=== PATIENT | male | born 2000 | race Caucasian/White ===

== ENCOUNTER 2021-08-20 21:18 | Emergency (ER) | payer SELFPAY ==
--- NOTE | ~2021-08-20 | XR_ITS ---
EXAMINATION: XR elbow RT min 3V, XR forearm RT 2V DATE: 08/20/2021 22:02 INDICATION: Right elbow and forearm pain 5 days post fall TECHNIQUE: 1. Anteroposterior, two oblique and lateral views of the right elbow were obtained. 2. AP and lateral views of the right forearm were obtained. COMPARISON: None. FINDINGS: Alignment is normal. Subtle angulation of the cortex at the proximal right radial head neck junction consistent with nondisplaced fracture. No other fractures identified. Joint spaces are normal. Small bone island at the capitellum. Small right elbow joint effusion with displacement of the anterior but not the posterior fat pad. Soft tissues are unremarkable. IMPRESSION: 1. Nondisplaced fracture at the right radial neck. Reviewed, dictated and finalized at location A. IOTHERAPY AIDE IMPRESSION: 1. Nondisplaced fracture at the right radial neck.
[2021-08-20 21:21] VITALS: BP 153/82; PULSE 120; RESP 16; TEMP 36.3; O2SAT 100
[2021-08-20] MEDS: HYDROcodone/acetaminophen (*CRX) 5-325 MG TABLET 1 TAB PO (22:01)
--- NOTE | 2021-08-20 22:04 | ED.GENADULT ---
HPI - General Adult General Chief complaint: Extremity Injury, Upper Stated complaint: arm pain Time Seen by Provider: 08/20/21 21:43 Source: RN notes reviewed History of Present Illness HPI narrative: Patient presents emergency department from home for right arm pain. Patient states he fell on , August 16 he states he is approximately 3 feet up off the ground when he fell landing onto his right forearm he states that he works as a correctional security officer and did not work the next day or the weekend he states he moved back to work today and after using the arm the pain became severe again today pain is located in the right elbow and into the right forearm over the ulnar aspect he denies any other trauma or injury denies any numbness or tingling of the extremity states he took Aleve approximately 2 hours ago the pain Related Data Allergies Allergy/AdvReac Type Severity Reaction Status Date / Time No Known Allergies Allergy Verified 08/20/21 21:24 Review of Systems Review of Systems: Gen.: Denies fevers or chills Musculoskeletal: See HPI Neuro: Denies numbness, tingling, weakness Skin: Denies rash Endo: Denies DM PMFSH Past Medical History Medical History (Updated 08/20/21 @ 23:02 by Juan Pablo Grayson DO) Patient denies significant medical history Social History Social History (Updated 08/20/21 @ 22:05 by Juan Pablo Grayson DO) Smoking status: Never smoker Exam Narrative: APPEARANCE: No acute distress, nontoxic, resting in bed Eyes: EOMI HEENT: Normocephalic, atraumatic, RESPIRATORY: No respiratory distress MUSCULOSKELETAl: Tender palpation over the right olecranon process and medial condyle of the elbow no swelling or ecchymosis tenderness along the ulnar aspect of the forearm no swelling or ecchymosis full flexion-extension of the elbow with pain with full flexion no tenderness of the wrist or shoulder radial pulse 2+ neurovascular intact NEURO: Awake and alert. Following commands, speech normal, no focal deficits SKIN:: Warm, dry. Normal Color no rash or lesions Course Course Emergency Course: Discussed with patient results of workup and diagnosis. Discussed need for follow-up with primary care, proper use of medication, and reasons to return to the emergency department. Patient understands and agrees to current treatment plan Vital Signs Vital signs: Vital Signs Temperature 97.4 F L 08/20/21 21:21 Pulse Rate 120 H 08/20/21 21:21 Respiratory Rate 16 08/20/21 21:21 Blood Pressure 153/82 H 08/20/21 21:21 Pulse Oximetry 100 08/20/21 21:21 Temperature 97.4 F L 08/20/21 21:21 Pulse Rate 120 H 08/20/21 21:21 Respiratory Rate 16 08/20/21 21:21 Blood Pressure 153/82 H 08/20/21 21:21 Pulse Oximetry 100 08/20/21 21:21 Medical Decision Making Vital Signs Vital Signs: Vital Signs Temperature 97.4 F L 08/20/21 21:21 Pulse Rate 120 H 08/20/21 21:21 Respiratory Rate 16 08/20/21 21:21 Blood Pressure 153/82 H 08/20/21 21:21 Pulse Oximetry 100 08/20/21 21:21 Temperature 97.4 F L 08/20/21 21:21 Pulse Rate 120 H 08/20/21 21:21 Respiratory Rate 16 08/20/21 21:21 Blood Pressure 153/82 H 08/20/21 21:21 Pulse Oximetry 100 08/20/21 21:21 Imaging Data Radiologist's impression: ITS Impressions Elbow X-Ray 08/20/21 22:46 IMPRESSION: 1. Nondisplaced fracture at the right radial neck. Forearm X-Ray 08/20/21 22:46 IMPRESSION: 1. Nondisplaced fracture at the right radial neck. Discharge Plan Discharge Clinical Impression: Closed fracture of neck of right radius Qualifiers: Encounter type: initial encounter Fracture alignment: nondisplaced Qualified Code(s): S52.134A - Nondisplaced fracture of neck of right radius, initial encounter for closed fracture Patient Disposition: Home, Self-Care Condition: Stable Instructions: Antibiotic Form, Elbow Fracture (ED) Additional Instructions: Return for increasing pain numbness or tingl
== END 2021-08-20 23:11 | disposition home or self-care (01) ==
PROVIDERS: Emergency Provider Emergency Medicine
DX: S52.134A Nondisplaced fracture of neck of right radius, initial encounter for closed fracture (principal); W17.89XA Other fall from one level to another, initial encounter
CPT/HCPCS: 73080; 73090; 99284; A4565; A9270